=== PATIENT | male | born 1990 | race Caucasian/White ===

== ENCOUNTER 2017-02-23 19:34 | Emergency (ER) | payer SELFPAY ==
[2017-02-23 19:51] VITALS: BP 134/87; PULSE 80; TEMP 97.9; BMI 44.3
[2017-02-23] MEDS ORDERED: IBUPROFEN 600 MG TABLET (FP) PO ONE (20:31)
[2017-02-23] MEDS ORDERED: IBUPROFEN 400 MG TABLET (FP) PO ONE (20:33)
--- NOTE | 2017-02-23 20:36 | PDOC ---
History of Present Illness - General Chief Complaint: Pain Stated Complaint: TOE INJURY Time Seen by Provider: 02/23/17 20:21 History Source: Patient Exam Limitations: No Limitations - History of Present Illness Initial Comments: 02/23/17 20:32 27 yr male with c/o pain to the left great toe for 2 weeks after stubbing the toe pt then cut the toenail short and it has now caused ingrown toenail. Past History - Past Medical History Allergies/Adverse Reactions: Allergies Allergy/AdvReac Type Severity Reaction Status Date / Time No Known Allergies Allergy Verified 02/23/17 19:48 Home Medications: Ambulatory Orders NK [No Known Home Medication] 02/23/17 Other medical history: Pt denies - Psycho/Social/Smoking Cessation Hx Suicidal Ideation: No Smoking History: Never smoked Information on smoking cessation initiated: No Hx Alcohol Use: No Drug/Substance Use Hx: No Substance Use Type: None *Physical Exam - Vital Signs Last Vital Signs Temp Pulse Resp BP Pulse Ox 97.9 F 80 20 134/87 100 02/23/17 19:48 02/23/17 19:48 02/23/17 19:48 02/23/17 19:48 02/23/17 19:48 - Physical Exam General Appearance: Yes: Nourished, Appropriately Dressed, Obese HEENT: positive: EOMI, IRVIN Extremity: positive: Normal Capillary Refill, Other (left great toenail ingrown bilaterally , no pus drainage) Integumentary: positive: Normal Color, Dry, Warm Neurologic: positive: Fully Oriented, Alert, Normal Mood/Affect, Normal Response , Motor Strength 5/5 Medical Decision Making - Medical Decision Making 02/23/17 20:38 cc: trauma to toenail 2 weeks ago now with ingrown after pt cut the nail almost 3/[address] down the nail no pus drainage, no redness will soak toenail motrin for pain pt needs to see tipping machine operator for removal, pt understands and agrees with the plan toenail dressed in bulky dressing and hardsole shoe given *DC/Admit/Observation/Transfer Diagnosis at time of Disposition: Ingrown left big toenail - Discharge Dispostion Disposition: HOME Condition at time of disposition: Good - Referrals Referrals: Evelio Sethi MD [Staff Physician] - - Patient Instructions Printed Discharge Instructions: DI for Ingrown Toenail Additional Instructions: follow with the tipping machine operator soak the toe in warm water with a few crushed up aspirin 2-3 times a day do not cut the nails [facility] department of Podiatry [phone].
== END 2017-02-23 20:48 | disposition home or self-care (01) ==
LOC: JERFT 19:34
DX: L60.0 Ingrowing nail (principal)
CPT/HCPCS: 99281-25